=== PATIENT | female | born 1980 | race Caucasian/White ===

== ENCOUNTER 2017-10-07 11:09 | Inpatient (IN) | payer OTHER ==
[2017-10-07 12:14] LABS: ABS Basophils 0.1 10^3/ul (0-0.2); ABS Eosinophils 0 10^3/ul (0-0.6); ABS Lymphocytes 1.9 10^3/ul (1.0-4.8); ABS Neutrophils 7.8 10^3/ul (1.5-7.7); ABS Nucleated RBC 0 10^3/ul; Eosinophil % 0.3 % (0-6); Hematocrit 36 % (35-47); Hemoglobin 12.1 g/dl (12.0-16.0); Lymphocyte % 17.3 % (25-47); Mean Corpuscular HGB Conc 34 g/dl (31-36); Mean Corpuscular Hemoglobin 29 pg (27-31); Mean Corpuscular Volume 86 fL (80-97); Mean Platelet Volume 10 um3 (7.4-10.4); Nucleated Red Blood Cells % 0.1; Platelet Count 166 10^3/ul (150-450); Red Blood Count 4.15 10^6/ul (4.0-5.4); Red Cell Distribution Width 15 % (10.5-15); White Blood Count 10.9 10^3/ul (3.5-10.8)
[2017-10-07] MEDS ORDERED: fentaNYL* 50 MCG/ML 2 ML VIAL (100 MCG VIAL) ONE (14:33)
[2017-10-07] MEDS ORDERED: fentaNYL* 50 MCG/ML 2 ML VIAL (100 MCG VIAL) IV SLOW PU ONE (14:34)
[2017-10-07] MEDS ORDERED: Dibucaine 1% 28.35 GM TUBE ONE (16:54)
[2017-10-07] MEDS ORDERED: Witch Hazel PAD* JAR ONE (16:55)
[2017-10-07] MEDS ORDERED: Glycerin ADULT SUPP PR PRN (17:01)
[2017-10-07] MEDS ORDERED: Dibucaine 1% 28.35 GM TUBE PR PRN (17:01)
[2017-10-07] MEDS ORDERED: Witch Hazel PAD* JAR TOPICAL PRN (17:01)
[2017-10-07] MEDS ORDERED: Ibuprofen TAB* 600 MG PO PRN (17:01)
[2017-10-07] MEDS ORDERED: Simethicone TAB* 80 MG TAB.CHEW PO SCH (17:30)
[2017-10-07] MEDS: Docusate CAP* 100 MG PO SCH (21:18)
[2017-10-08] MEDS: Acetaminophen TAB* 325 MG PO PRN ×4 (04:16→21:42)
[2017-10-08 06:41] LABS: ABS Basophils 0 10^3/ul (0-0.2); ABS Eosinophils 0.1 10^3/ul (0-0.6); ABS Lymphocytes 2.3 10^3/ul (1.0-4.8); ABS Neutrophils 7.7 10^3/ul (1.5-7.7); ABS Nucleated RBC 0 10^3/ul; Eosinophil % 0.6 % (0-6); Hematocrit 34 % (35-47); Hemoglobin 11.7 g/dl (12.0-16.0); Lymphocyte % 20.8 % (25-47); Mean Corpuscular HGB Conc 34 g/dl (31-36); Mean Corpuscular Hemoglobin 29 pg (27-31); Mean Corpuscular Volume 86 fL (80-97); Mean Platelet Volume 10 um3 (7.4-10.4); Nucleated Red Blood Cells % 0; Platelet Count 153 10^3/ul (150-450); Red Blood Count 4.01 10^6/ul (4.0-5.4); Red Cell Distribution Width 14 % (10.5-15); White Blood Count 11.1 10^3/ul (3.5-10.8)
[2017-10-08] MEDS: Docusate CAP* 100 MG PO SCH ×3 (08:57→21:41)
[2017-10-08] MEDS ORDERED: Ferrous Gluconate TAB* 324 MG TAB PO SCH (09:00)
[2017-10-09] MEDS: Acetaminophen TAB* 325 MG PO PRN ×2 (07:40→13:43)
[2017-10-09] MEDS: Docusate CAP* 100 MG PO SCH ×2 (07:40→13:43)
[2017-10-09 07:53] VITALS: BP 110/64
== END 2017-10-09 15:07 | disposition home or self-care (01) | DRG 775 ==
LOC: MCHOBOUT 11:09 → MCHOB 11:25
PROVIDERS: ADMIT Midwife; ATTEND Midwife
PROC: 4A1HX4Z Monitoring of Products of Conception, Cardiac Electrical Activity, External Approach (ICD-10-PCS; principal; 2017-10-07)
PROC: 10E0XZZ Delivery of Products of Conception, External Approach (ICD-10-PCS; 2017-10-07)
PROC: 0KQM0ZZ Repair Perineum Muscle, Open Approach (ICD-10-PCS; 2017-10-07)
PROC: 10907ZC Drainage of Amniotic Fluid, Therapeutic from Products of Conception, Via Natural or Artificial Opening (ICD-10-PCS; 2017-10-07)
DX: O69.3XX0 Labor and delivery complicated by short cord, not applicable or unspecified (principal); O43.123 Velamentous insertion of umbilical cord, third trimester; O70.1 Second degree perineal laceration during delivery; O76 Abnormality in fetal heart rate and rhythm complicating labor and delivery; Z37.0 Single live birth; Z3A.39 39 weeks gestation of pregnancy; Z87.891 Personal history of nicotine dependence
CPT/HCPCS: 36415; 85025; 86850; 86900; 86901; A9270-GY; J3010